=== PATIENT | female | born 1980 | race Caucasian/White ===

== ENCOUNTER 2019-01-11 17:34 | Inpatient (IN) ==
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
[2019-01-11 18:11] LABS: Bilirubin,Urine Negative (Negative); Blood,Urine Negative (Negative); Clarity,Urine Clear (Clear); Color,Urine Yellow (Yellow); Glucose,Urine (UA) Normal (Normal); Ketones,Urine Negative (Negative); Leukocyte Esterase,Urine Negative (Negative); Nitrite,Urine Negative (Negative); Protein,Urine Negative (Neg-Trace); Specific Gravity,Urine 1.015 (1.010-1.025); Urobilinogen,Urine Normal (Normal)
[2019-01-11 18:13] LABS: Basophils % 0.2 %; Eosinophils % 0.1 %; Hematocrit 40.6 % (35.3-44.9); Hemoglobin 13.3 g/dL (11.5-15.4); Immature Granulocytes % 0.2 % (0-4); Lymphocytes # 2.3 K/mcL (0.6-4.6); Lymphocytes % 24.5 %; Mean Corpuscular HGB Conc 32.8 g/dL (31.6-35.5); Mean Corpuscular Hemoglobin 28.2 pg (28.0-33.3); Mean Platelet Volume 10.9 fL (9.4-12.4); Monocytes # 0.7 K/mcL (0.0-1.3); Monocytes % 7.9 %; Neutrophils # 6.3 K/mcL (1.6-8.9); Platelet Count 277 K/mcL (140-400); Red Blood Count 4.72 M/mcL (3.82-4.97); Red Cell Distribution Width 13.9 % (11.5-14.5); Segmented Neutrophils % 67.1 %
[2019-01-11 18:18] LABS: Amphetamine Screen,Urine Negative ng/mL (Cutoff=1000); Barbiturate Screen,Urine Negative ng/mL (Cutoff=200); Benzodiazepines Screen,Urine Negative ng/mL (Cutoff=200); Cannabinoid Screen,Urine Negative ng/mL (Cutoff = 50); Cocaine Screen,Urine Negative ng/mL (Cutoff= 300); Opiate Screen,Urine Negative ng/mL (Cutoff=300); Phencyclidine Screen,Urine Negative ng/mL (Cutoff=25)
[2019-01-11 18:32] LABS: Acetaminophen < 10 mcg/mL (10-20); BUN/Creatinine Ratio 10 (6-26); Blood Urea Nitrogen 9 mg/dL (6-20); Calcium 9.8 mg/dL (8.6-10.3); Carbon Dioxide 24 mEq/L (23-29); Chloride 107 mEq/L (98-107); Ethanol < 10 mg/dL (Less than 10); Glucose 104 mg/dL (70-105); Osmolality,Calculated 287 (280-300); Potassium 3.9 mEq/L (3.5-5.1); Salicylate < 2.5 mg/dL (15.0-30.0); Sodium 139 mEq/L (136-145); eGFR For Non-African Americans > 60 (> 60)
[2019-01-11] MEDS ORDERED: traZODone 50 MG TABLET PO PRN (18:49)
[2019-01-11] MEDS ORDERED: *HR* LORazepam 2 MG/ML VIAL IM PRN (18:49)
[2019-01-11] MEDS ORDERED: Haloperidol Lactate 5 MG/ML VIAL IM PRN (18:49)
[2019-01-11] MEDS ORDERED: *HR* LORazepam 1 MG TABLET PO PRN (18:49)
[2019-01-11] MEDS ORDERED: Ibuprofen 400 MG TABLET PO PRN (18:49)
[2019-01-11] MEDS ORDERED: Mag Hydrox/Al Hydrox/Simeth 30 ML UDC PO PRN (18:49)
[2019-01-11] MEDS ORDERED: MOM Conc 10 ML UD.LIQ PO PRN (18:49)
[2019-01-11] MEDS ORDERED: hydrOXYzine pamoate 25 MG CAPSULE PO PRN (18:49)
[2019-01-11] MEDS: Gabapentin 300 MG CAPSULE PO SCH (22:09)
[2019-01-11] MEDS: risperiDONE 0.25 MG TABLET PO SCH (22:10)
[2019-01-11] MEDS: Lithium Carbonate 300 MG CAPSULE PO SCH (22:12)
[2019-01-12] MEDS: Gabapentin 300 MG CAPSULE PO SCH ×4 (09:42→21:07)
[2019-01-12] MEDS ORDERED: Acetaminophen 325 MG TABLET PO PRN (09:42)
[2019-01-12] MEDS: Cyanocobalamin (B-12) 1,000 MCG TABLET PO SCH (09:42)
[2019-01-12] MEDS: Cholecalciferol (D-3) 1,000 UNIT TABLET PO SCH (09:42)
[2019-01-12] MEDS: Lithium Carbonate 300 MG CAPSULE PO SCH ×2 (09:42→21:05)
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
[2019-01-12] MEDS: Oxymetazoline Nasal SPRAY BOTTLE NS PRN (14:23)
[2019-01-12] MEDS ORDERED: Nicotine 2 MG GUM BC PRN (20:13)
[2019-01-12] MEDS: risperiDONE 0.25 MG TABLET PO SCH (21:06)
[2019-01-13] MEDS: Cyanocobalamin (B-12) 1,000 MCG TABLET PO SCH (08:36)
[2019-01-13] MEDS: Gabapentin 300 MG CAPSULE PO SCH ×4 (08:36→20:04)
[2019-01-13] MEDS: Cholecalciferol (D-3) 1,000 UNIT TABLET PO SCH (08:36)
[2019-01-13] MEDS: Lithium Carbonate 300 MG CAPSULE PO SCH ×2 (08:37→20:03)
[2019-01-13] MEDS: Oxymetazoline Nasal SPRAY BOTTLE NS PRN ×2 (08:59→21:00)
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
[2019-01-13] MEDS ORDERED: risperiDONE 1 MG TABLET PO SCH (21:00)
[2019-01-14] MEDS: Cholecalciferol (D-3) 1,000 UNIT TABLET PO SCH (08:33)
[2019-01-14] MEDS: Lithium Carbonate 300 MG CAPSULE PO SCH (08:33)
[2019-01-14] MEDS: Cyanocobalamin (B-12) 1,000 MCG TABLET PO SCH (08:34)
[2019-01-14] MEDS: Gabapentin 300 MG CAPSULE PO SCH (08:34)
[2019-01-14 08:37] VITALS: BP 126/83
--- NOTE | 2019-01-14 11:37 | Discharge Summary ---
Date of Encounter: 01/14/19 Time of Encounter: 09:00 Diagnosis - Discharge Diagnosis (1) Homicidal ideations Status: Resolved (2) Bipolar disorder Status: Acute Comments: Patient on [place] 300mg/am and 6oomg/hs and Risperdal 1mg/hs and has improved and stabilized Qualifiers: Active/Remission status: currently active Current bipolar episode type: depressed Current episode severity: severe Psychotic features: with psychotic features Qualified Code(s): F31.5 - Bipolar disorder, current episode depressed, severe, with psychotic features Medications - Discharge Medications Prescriptions: hydrOXYzine pamoate [HydrOXYzine Pamoate] 25 mg PO BID 30 Days #60 capsule [place] Carbonate 600 mg PO HS 30 Days #60 capsule [place] Carbonate 300 mg PO QAM 30 Days #30 capsule risperiDONE [RisperDAL] 1 mg PO HS 30 Days #30 tablet Atorvastatin [Lipitor] 10 mg PO HS 01/11/19 [History] Cholecalciferol (Vitamin D3) [Vitamin D3] 1,000 unit SQ DAILY 01/11/19 [History] Cyanocobalamin (Vitamin B-12) [Vitamin B12] 1,000 mcg PO DAILY 01/11/19 [History] Doxepin HCl 50 mg PO HS 01/11/19 [History] Gabapentin [Neurontin] 300 mg PO QID 01/11/19 [History] Cholecalciferol (D-3) [Vitamin D] 1,000 unit PO DAILY tablet 01/14/19 [Rx] [place] Carbonate 300 mg PO QAM 30 Days #30 capsule 01/14/19 [Rx] [place] Carbonate 600 mg PO HS 30 Days #60 capsule 01/14/19 [Rx] hydrOXYzine pamoate [HydrOXYzine Pamoate] 25 mg PO BID 30 Days #60 capsule 01/14/19 [Rx] risperiDONE [RisperDAL] 1 mg PO HS 30 Days #30 tablet 01/14/19 [Rx] Allergy/AdvReac Type Severity Reaction Status Date / Time cephalexin [From Keflex] AdvReac Rash Verified 01/11/19 19:38 sulfamethoxazole AdvReac Rash Verified 01/11/19 19:38 [From Bactrim] trimethoprim [From Bactrim] AdvReac Rash Verified 01/11/19 19:38 Results Procedures and tests throughout hospitalization: Completed Lab Orders Category Date Time Status Acetaminophen Stat Lab 01/11/19 18:03 Completed Basic Metabolic Panel Stat Lab 01/11/19 18:03 Completed Complete Blood Count [HEME] Stat Lab 01/11/19 18:03 Completed Drug Screen, Urine [UCHEM] Stat Lab 01/11/19 17:58 Completed Ethanol Stat Lab 01/11/19 18:03 Completed Test Result, Urine [URIN] Stat Lab 01/11/19 17:58 Completed Salicylate Stat Lab 01/11/19 18:03 Completed Urinalysis reflex Microscopic [URIN] Stat Lab 01/11/19 17:58 Completed Provider Date of admission: 01/11/19 18:45 Primary care physician: PCP NONE Discharging clinician: Alejandra Bruce Psychiatry Exam - Constitutional Vitals: Temp Pulse Resp BP Pulse Ox 97.8 F 77 17 126/83 99 01/14/19 08:35 01/14/19 08:35 01/14/19 08:35 01/14/19 08:35 01/14/19 08:35 General appearance: age & developmentally appropriate, well-groomed, well- nourished - Musculoskeletal Gait: normal Station: relaxed Strength & Tone: normal for patient - Psychiatric Patient Orientation: Yes Person, Yes Time, Yes Place Level of alertness: Alert Behavior: calm, cooperative Psychomotor activity: Normal Eye Contact: Maintains Eye Contact Mood Description: Euthymic/stable Patient description of mood: Good Affect description: congruent with mood, full range Speech Volume: Normal Speech pattern: normal rate, normal rhythm, normal tone, fluent, spontaneous Language & Vocabulary: consistent with education Thought Process: Linear, Goal Oriented Thought Content: No Suicidal ideation, No Homicidal ideation, No Overt delusions Perceptual Disturbances: No Auditory hallucinations, No Visual hallucinations Attention Span Ability: Capable of Focused Attention Memory Description: Grossly Intact Patient Reliability: Reliable Historian Fund of knowledge: Yes abstraction ability, Yes aware of current events Intelligence Estimate: Average Judgment: Fair Insight: Partial Hospital Course Hospital course: Ms. López is a 38 year old female who was a direct admit from [facility]. She had been at group when she became upset and increasingly irritable and depressed and was having suicidal ideations with a plan to overdose as well as homicidal ideations with a plan to kill her [employer] worker. She states that she found out on Wednesday that on Wednesday her brother had been granted custody of one of her children. She said this is particularly upsetting as she has been testing negative for drugs but he and his girlfriend have been testing positive. She has been compliant with her medications and that the lithium used to work when she first started it but it no longer seems to be effective. She reported some thoughts about the FBI and people working for the FBI but otherwise no auditory hallucinations visual hallucinations or delusions. She reports crying spells poor interest, feelings of guilt and worthlessness, decreased sleep, and hopelessness. She reports periods of increased mood with rapid speech, decreased need for sleep, increased goal-directed activity, and euphoria. Patient had been on [place] for a short while. Her lithium was increased to 300mg/am and 600mg/hs for mood. By day of discharge patient noticed a reduction in her irritability, improved sleep. Patient denied SI/HI ;and has no plans to retaliate against person at clinic she threatened. Patient denied pspychotic symptoms. Patient displayed no pressure of speech, flight of ideas. She denied depression. Patient desired to be discharged with folowup with her regular OP provider. A lab slip for LI level to be drawn here at [place] tomorrow was provided to patient. - Time Spent with Patient Total time spent providing and/or coordinating discharge services: Assessment and Plan - Patient/Caregiver Discharge Instructions Activity: resume usual activities as tolerated Diet: regular diet - Follow up Plan Follow up with: NONE,PCP [Primary Care Provider] - Functional capacity at discharge: independent ambulation Overall status at discharge: Stable (Patient has lab slip to get her lithium level checked tomorrow) Disposition: Home, Self-Care Quality - Multiple Antipsychotics Patient discharged on 2 or more antipsychotic medications: No Procedures - Procedures Procedures: Medication Management, Crisis Stabilization, Supportive Therapy, Group Therapy, Psychoeducational Therapy
== END 2019-01-14 13:00 | disposition home or self-care (01) | DRG 753 ==
LOC: EMEROOARM 17:34 → 1ANU 18:45
PROVIDERS: ADMIT Psychiatry & Neurology Psychiatry; ATTEND Psychiatry & Neurology Psychiatry